=== PATIENT | female | born 1960 | race Caucasian/White ===

== ENCOUNTER 2016-10-20 13:47 | Day surgery (SDC) | payer OTHER ==
[~2016-10-20] VITALS: Ht 165.1 cm; Wt 90.7 kg
[~2016-10-20 13:47] MED LIST: HYDR200T5 PO; LEVO50CA2 PO; LIP40 PO; LISI10TA PO; METO50TA3 PO; RANI150C4 PO
--- NOTE | 2016-10-20 16:47 | PCM.PROC ---
Procedure Note Date of Service: Oct 20, 2016 Pre Procedure Diagnosis: PROCEDURE: Ultrasound-guided LEFT piriformis muscle injection and sciatic nerve perineural injection PRE-PROCEDURE DIAGNOSIS: Low back pain, piriformis syndrome POST-PROCEDURE DIAGNOSIS: same INDICATION: 56-year-old female with buttock and leg pain consistent with piriformis syndrome PERFORMED BY: Lavell Garcia MD DESCRIPTION OF PROCEDURE: Patient was met in the holding area. Consent was signed, site was confirmed and all questions were answered. Patient was taken to the procedure suite and placed prone on the procedure table. Area was prepped and draped sterile fashion. Local anesthesia 1% lidocaine was injected into the skin and subcutaneous tissues. A 25-gauge Quincke 3-1/2 inch spinal needle was advanced towards the piriformis muscle using direct ultrasound visualization. 2 cc of 0.25% bupivacaine with 20 mg Depo-Medrol was injected without incident. 10 mg Depo-Medrol with 0.4cc 0.25% Bupivicaine was then injected around the sciatic nerve under direct ultrasound visualization. ANESTHESIA: Local. EBL: None. No Blood Products Used COMPLICATIONS: None SPECIMENS: None POST-PROCEDURE DISPOSITION: Patient was returned to the holding area in stable condition. They were discharged home when all discharge criteria were met. Evaluation/Physical Exam before discharge revealed: DISCHARGE MEDICATIONS: FOLLOW UP: Returning clinic in 2 weeks Lavell Browning MD, MD Oct 20, 2016 16:47
== END 2016-10-20 23:59 | disposition home or self-care (01) ==
LOC: END 13:47
PROVIDERS: ATTEND Anesthesiology Pain Medicine
DX: G57.02 Lesion of sciatic nerve, left lower limb (principal); M54.5 Low back pain

== ENCOUNTER 2017-02-23 12:40 | Day surgery (SDC) | payer OTHER ==
[~2017-02-23] VITALS: Ht 165.1 cm; Wt 95.2 kg
[2017-02-23] MEDS ORDERED: Iohexol 240 mg/mL 10 mL Inj ONE (12:41)
[2017-02-23] MEDS ORDERED: MethylprednisoLONE Depot 80 mg/mL Inj ONE (12:41)
[2017-02-23] MEDS ORDERED: Bupivacaine-MPF 0.25% 30 mL Inj ONE (12:41)
[2017-02-23 12:50] VITALS: BP 182/85; PULSE 79; RESP 14; O2SAT 98
--- NOTE | 2017-02-23 15:52 | PCM.PROC ---
Procedure Note Date of Service: Feb 23, 2017 Pre Procedure Diagnosis: PROCEDURE: LEFT Sacroiliac joint injection (fluoroscopically guided) PRE-PROCEDURE DIAGNOSIS: Sacroiliitis POST-PROCEDURE DIAGNOSIS: same INDICATION: 56-year-old patient with posterior hip pain, suggestive of sacroiliitis ASA / ANTICOAGULATION: No asa x 7 days PERFORMED BY: Lavell Garcia MD DESCRIPTION OF PROCEDURE: Patient was met in the holding area. Consent was signed, site was confirmed and all questions were answered. Patient was taken to the procedure suite and placed prone on the procedure table. Area was prepped and draped in sterile fashion Local anesthesia with 1% lidocaine was injected into the epidermidis and dermis. A 22-gauge Quincke spinal needle was advanced towards the sacroiliac joint after visualization was optimized fluoroscopically in the AP view. Proper positioning in the joint was confirmed by injecting contrast. We then took a lateral view to reconfirm proper positioning in the sacroiliac joint. 80mg depomedrol with 2 cc of 0.25% Bupivicaine injected without difficulty. ANESTHESIA: Local. EBL: None. No Blood Products Used COMPLICATIONS: None SPECIMENS: None POST-PROCEDURE DISPOSITION: Patient tolerated the procedure well was returned to the holding area in stable condition. They were discharged home when all discharge criteria were met. Fluro time: See Radiology Report Evaluation/Physical Exam before discharge revealed: DISCHARGE MEDICATIONS: none FOLLOW UP: Keep scheduled follow-up Lavell Garcia MD * Pain Management * Anesthesiology Lavell Garcia MD Feb 23, 2017 15:52
--- NOTE | 2017-02-26 12:37 | DRSVH ---
PROCEDURE: X-RAY NO CHARGE FLUORO<1 HR INDICATIONS: LEFT SI JOINT INJECTION COMPARISON: [facility], , NO CHARGE FLUORO<1 HR, 01/19/2014, 12:26. FINDINGS/IMPRESSION: Single spot fluoroscopic image demonstrates injection of a sacroiliac joint. Dictated by: Olesya Dsouza M.D. on 02/26/2017 at 12:32 Approved by: Olesya Dsouza M.D. on 02/26/2017 at 12:35
== END 2017-02-23 23:59 | disposition home or self-care (01) ==
LOC: END 12:40
PROVIDERS: ATTEND Anesthesiology Pain Medicine
DX: M46.1 Sacroiliitis, not elsewhere classified (principal)
CPT/HCPCS: G0260; J1040